=== PATIENT | female | born 1990 | race Hispanic/Latino ===

== ENCOUNTER 2020-05-18 15:08 | Inpatient (IN) | payer MEDICAID ==
[~2020-05-18] VITALS: Ht 157.5 cm; Wt 139.3 kg
[2020-05-18 16:18] LABS: HEMATOCRIT 34.4 % (36-48); MEAN CORPUSCULAR HEMOGLOBIN 31.1 pg (27.0-33.0); MEAN CORPUSCULAR HGB CONC 33.1 g/dL (32.0-36.0); RED BLOOD CELL COUNT(AUTO) 3.66 MIL/uL (4.00-5.50); RED CELL DISTRIBUTION WIDTH 13.2 % (11.0-15.5); WHITE BLOOD COUNT (AUTO) 9.4 K/uL (4.8-10.8)
[2020-05-18] MEDS: LACTATED RINGERS 1000ML 1,000 ML IV PRN (16:23)
[2020-05-18 16:27] LABS: CREATININE 0.6 mg/dL (0.5-1.5); POTASSIUM 3.8 mmol/L (3.5-5.1)
[2020-05-18 16:31] LABS: INR 0.94 (0.85-1.15); PROTHROMBIN TIME 10.1 SEC (9.6-11.6)
[2020-05-18 16:32] LABS: ALBUMIN 2.8 g/dL (3.5-5.0); BILIRUBIN,TOTAL 0.2 mg/dL (0.2-1.0); PARTIAL THROMBOPLASTIN TIME 24.7 SEC (26.3-35.5); TOTAL PROTEIN, SERUM 7.3 g/dL (6.0-8.3); URIC ACID 4.6 mg/dL (2.6-7.2)
[2020-05-18 16:46] LABS: APPEARANCE,URINE Clear (CLEAR); BILIRUBIN,URINE Negative (NEGATIVE); COLOR,URINE Yellow (YELLOW); GLUCOSE, URINE (UA) Negative (NEGATIVE); KETONES,URINE Negative (NEGATIVE); LEUKOCYTE ESTERASE ,URINE Negative (NEGATIVE); NITRATE,URINE Negative (NEGATIVE); OCCULT BLOOD,URINE Nonhemolyzed Trace (NEGATIVE); PH,URINE 5.5 (5.0-8.0); PROTEIN,URINE Negative (NEGATIVE)
[2020-05-18 17:08] LABS: BACTERIA,URINE Rare /HPF (None Seen); RBC,URINE None Seen /HPF (0-1); WBC,URINE 0-1 /HPF (0-1)
[2020-05-18] MEDS ORDERED: PROMETHAZINE HCL 25 MG/ML 1ML AMPULE IM PRN (17:30)
[2020-05-18] MEDS ORDERED: MEPERIDINE-PF 50 MG/ML SYG IVP PRN (17:30)
[2020-05-18] MEDS ORDERED: NALOXONE HCL 0.4 MG/1 ML ML IV PRN (17:30)
[2020-05-18] MEDS ORDERED: EPHEDRINE SULFATE 50 MG/ML AMPULE IVP PRN (17:30)
[2020-05-18] MEDS ORDERED: LACTATED RINGERS 500 ML 500 ML IV PRN (17:30)
[2020-05-18] MEDS ORDERED: ROPIVACAINE 0.2% 100ML VIAL 100 ML EP SCH (17:30)
[2020-05-18] MEDS ORDERED: DINOPROSTONE 10 MG VAGINAL SUPP VG SCH (18:30)
[2020-05-19] MEDS: LACTATED RINGERS 1000ML 1,000 ML IV PRN ×4 (00:17→16:40)
[2020-05-19] MEDS ORDERED: OXYTOCIN-LR 20 UNITS/1000 ML 1,000 ML IV ONE ×2 (07:57→11:39)
[2020-05-19] MEDS: OXYTOCIN-LR 20 UNITS/1000 ML 1,000 ML IV SCH (08:00)
[2020-05-19] MEDS ORDERED: LIDOCAINE HCL 1% 20 ML VIAL ONE (20:39)
[2020-05-19] MEDS ORDERED: CEFAZOLIN SODIUM 1 GM VIAL IVP ONE (21:00)
[2020-05-19] MEDS ORDERED: CEFAZOLIN SODIUM 1 GM VIAL ONE (21:03)
[2020-05-19] MEDS ORDERED: 0.9%NACL 10ML VIAL ONE (21:03)
[2020-05-19] MEDS ORDERED: ACETAMINOPHEN WITH CODEINE 1 TAB TAB PO PRN (23:30)
[2020-05-19] MEDS ORDERED: BENZOCAINE/LANOLIN/ALOE VERA 60 ML AEROSOL TP PRN (23:30)
[2020-05-19] MEDS ORDERED: ACETAMINOPHEN 325 MG TAB PO PRN (23:30)
[2020-05-19] MEDS ORDERED: WITCH HAZEL 1 PAD TP PRN (23:30)
[2020-05-19] MEDS ORDERED: LANOLIN 30GM OINTMENT TP PRN (23:30)
[2020-05-20] MEDS: IBUPROFEN 600 MG TABLET PO PRN ×4 (00:25→22:12)
[2020-05-20 01:15] VITALS: BP 132/72
[2020-05-20] MEDS ORDERED: PREN-155 PO (01:42)
[2020-05-20] MEDS ORDERED: FLU VACC QS2020-21(6MOS UP)/PF 60 MCG/0.5 ML ML IM ONE ×2 (01:45→20:02)
[2020-05-20] MEDS ORDERED: DIPH,PERTUSS(ACELL),TET VAC/PF 0.5 ML VIAL IM ONE ×2 (02:45→18:15)
[2020-05-20] MEDS ORDERED: MEASLES/MUMPS/RUBELLA VACCINE, LIVE 0.5 ML/VIAL SQ ONE ×2 (02:45→18:15)
[2020-05-20 03:05] VITALS: BP 116/62
[2020-05-20] MEDS: OXYTOCIN-LR 20 UNITS/1000 ML 1,000 ML IV SCH (07:13)
[2020-05-20 07:50] VITALS: BP 108/68
[2020-05-20] MEDS: DOCUSATE SODIUM 100 MG CAP PO SCH ×2 (09:17→20:13)
[2020-05-20 12:00] VITALS: BP 112/64
[2020-05-20 12:11] LABS: HEPATITIS Bs ANTIGEN SCREEN P Negative (Negative)
[2020-05-20] MEDS ORDERED: PHARMACY COMMUNICATION MISC SCH (18:15)
[2020-05-20 19:15] VITALS: BP 105/63
[2020-05-20 23:00] VITALS: BP 131/75
[2020-05-21 04:00] VITALS: BP 130/72
[2020-05-21 07:25] VITALS: BP 116/70
[2020-05-21] MEDS: DOCUSATE SODIUM 100 MG CAP PO SCH ×2 (09:11→20:57)
[2020-05-21 11:50] VITALS: BP 107/54
[2020-05-21] MEDS: IBUPROFEN 600 MG TABLET PO PRN ×2 (15:09→20:58)
[2020-05-21 15:55] VITALS: BP 133/66
[2020-05-21 19:00] VITALS: BP 130/75
[2020-05-21 23:23] VITALS: BP 128/73
[2020-05-22 02:52] VITALS: BP 122/57
[2020-05-22] MEDS: IBUPROFEN 600 MG TABLET PO PRN ×2 (05:21→13:16)
[2020-05-22] MEDS: DOCUSATE SODIUM 100 MG CAP PO SCH (08:33)
[2020-05-22 11:50] VITALS: BP 113/68
== END 2020-05-22 13:25 | disposition home or self-care (01) | DRG 560 ==
LOC: EDH 15:08 → LDH 15:09 → WSH 05-20 01:12
PROVIDERS: ADMIT Obstetrics & Gynecology; ATTEND Obstetrics & Gynecology
PROC: 10E0XZZ Delivery of Products of Conception, External Approach (ICD-10-PCS; principal; 2020-05-19)
PROC: 3E0R3BZ Introduction of Anesthetic Agent into Spinal Canal, Percutaneous Approach (ICD-10-PCS; 2020-05-19)
PROC: 0W8NXZZ Division of Female Perineum, External Approach (ICD-10-PCS; 2020-05-19)
PROC: 00HU33Z Insertion of Infusion Device into Spinal Canal, Percutaneous Approach (ICD-10-PCS; 2020-05-19)
PROC: 3E0234Z Introduction of Serum, Toxoid and Vaccine into Muscle, Percutaneous Approach (ICD-10-PCS; 2020-05-19)
PROC: 3E0134Z Introduction of Serum, Toxoid and Vaccine into Subcutaneous Tissue, Percutaneous Approach (ICD-10-PCS; 2020-05-19)
PROC: 3E02340 Introduction of Influenza Vaccine into Muscle, Percutaneous Approach (ICD-10-PCS; 2020-05-19)
DX: O13.4 Gestational [pregnancy-induced] hypertension without significant proteinuria, complicating childbirth (principal); O69.1XX0 Labor and delivery complicated by cord around neck, with compression, not applicable or unspecified; O99.214 Obesity complicating childbirth; E66.01 Morbid (severe) obesity due to excess calories; Z3A.38 38 weeks gestation of pregnancy; Z37.0 Single live birth; Z23 Encounter for immunization
CPT/HCPCS: 36415; 76805; 80053; 81001; 84550; 85027; 85384; 85610; 85730; 86592; 86850; 86900; 86901; 87340; 90707; 90715; A4314; A4606; G0378; J0690; J2590; J2795; J7120; Q2035